=== PATIENT | female | born 1955 | race Caucasian/White ===

== ENCOUNTER 2016-07-21 15:23 | Emergency (ER) | payer OTHER ==
[~2016-07-21] VITALS: Ht 157.5 cm; Wt 60.5 kg
[~2016-07-21 15:23] MED LIST: HYDR-3498 PO; IBUP-1542 PO; TRAM50TA2 PO; TYL500 PO
[2016-07-21 15:26] VITALS: Ht 157.5 cm; Wt 60.5 kg
[2016-07-21] MEDS ORDERED: SOD CHLORIDE 0.9% 1,000 ML IV STA (16:16)
[2016-07-21] MEDS ORDERED: ONDANSETRON 4 MG INJ IV STA (16:16)
[2016-07-21] MEDS ORDERED: morphine 4 MG/ML VIAL IV STA (16:16)
--- NOTE | 2016-07-21 16:33 | ERD ---
ER Documentation Chief Complaint Date/Time DATE: 07/21/16 TIME: 16:26 Chief Complaint bilateral swollen ankles x 1 year HPI 61-year-old female presents the emergency department for complaints of bilateral ankle swelling with pain 1 year. Patient also notes right sided pain near her inguinal region, which has also occurred intermittently throughout the year. Patient states her groin pain is a 5 out of 10 sharp pain worse with coughing. Patient denies any nausea, vomiting, diarrhea, abdominal pain, upper respiratory shortness of breath, cough. Patient denies any medical history. Patient states she has attempted to treat the pain with Tylenol at home with only mild relief. She denies any injury and is able to ambulate without difficulty. ROS All systems reviewed and are negative except as per history of present illness. Medications Home Meds Active Scripts Ibuprofen* (Motrin*) 600 Mg Tab, 600 MG PO Q6, #30 TAB Prov:SANFORD ROJAS PA-C 07/21/16 Acetaminophen* (Tylenol*) 325 Mg Tablet, 2 TAB PO Q6 Y for PAIN AND OR ELEVATED TEMP, #20 TAB Prov:SANFORD ROJAS PA-C 07/21/16 Furosemide* (Lasix*) 20 Mg Tablet, 20 MG PO DAILY, #40 TAB Prov:SANFORD ROJAS PA-C 07/21/16 Tramadol HCl (Tramadol HCl) 50 Mg Tablet, 50 MG PO Q4 Y for PAIN, #20 TAB Prov:ELIZABETH FIELD MD 10/14/15 Ibuprofen* (Motrin*) 600 Mg Tab, 600 MG PO Q6, #20 TAB Prov:ELIZABETH FIELD MD 10/14/15 Hydrocodone Bit-Acetaminophen* ([place]*) 5-325 Mg Tab, 1 TAB PO DAILY Y for PAIN , #10 TAB 0 Refills Prov:RYDER MOHR PA-C 01/15/15 Reported Medications Acetaminophen* (Tylenol*) 500 Mg Tab, 500 MG PO Q4H Y for MILD PAIN LEVEL 1-3, TAB 06/09/14 Allergies Allergies: Coded Allergies: Penicillins (Verified Allergy, Unknown, 10/14/15) PMhx/Soc History of Surgery: Yes (back surgery) Anesthesia Reaction: No Hx Neurological Disorder: No Hx Respiratory Disorders: No Hx Cardiac Disorders: No Hx Psychiatric Problems: No Hx Miscellaneous Medical Probl: No Hx Alcohol Use: No Hx Substance Use: No Hx Tobacco Use: No Physical Exam Vitals Vital Signs Date Time Temp Pulse Resp B/P Pulse Ox O2 Delivery O2 Flow Rate FiO2 07/21/16 15:26 98.5 90 18 135/82 96 Physical Exam Const: Well-developed, well-nourished, no acute distress Head: Atraumatic Eyes: Normal Conjunctiva ENT: Normal External Ears, Nose and Mouth. Neck: Full range of motion..~ No meningismus. Resp: Clear to auscultation bilaterally Cardio: Regular rate and rhythm, no murmurs Abd: Tenderness to palpation near the right anterior inguinal region. No masses palpable at rest and when the patient coughs. No erythema or swelling. No induration or fluctuance. Abdomen Soft, diffuse tenderness to palpation, non distended, no peritoneal signs. Normal bowel sounds Skin: No petechiae or rashes Back: No midline or flank tenderness Ext: Full range of motion at hip joint. Patient able to bear weight and ambulate without difficulty. Bilateral non-erythematous, nonpitting edema overlying the ankle joints bilaterally. Skin is warm and well perfused.. Patient has full range of motion at ankle joint. Distal sensation intact. Patient able to ambulate without difficulty. No cyanosis Neur: Awake and alert Psych: Normal Mood and Affect Result Diagram: 07/21/16 1640 07/21/16 1640 Results 24 hrs Laboratory Tests Test 07/21/16 16:40 White Blood Count 7.710^3/ul Red Blood Count 4.2910^6/ul Hemoglobin 11.9g/dl Hematocrit 37.4% Mean Corpuscular Volume 87.2fl Mean Corpuscular Hemoglobin 27.7pg Mean Corpuscular Hemoglobin Concent 31.8g/dl Red Cell Distribution Width 13.0% Platelet Count 83891^3/UL Mean Platelet Volume 10.0fl Neutrophils % 53.4% Lymphocytes % 33.1% Monocytes % 8.2% Eosinophils % 4.7% Basophils % 0.5% Nucleated Red Blood Cells % 0.0/100WBC Neutrophils # 4.110^3/ul Lymphocytes # 2.610^3/ul Monocytes # 0.610^3/ul Eosinophils # 0.410^3/ul Basophils # 0.010^3/ul Nucleated Red Blood Cells # 0.010^3/ul Urine Color LT. YELLOW Urine Clarity CLEAR Urine pH 6.0 Urine Specific [place] <=1.005 Urine Ketones NEGATIVE Urine Nitrite NEGATIVE Urine Bilirubin NEGATIVE Urine Urobilinogen 0.2 E.U./dL Urine Leukocyte Esterase NEGATIVE Urine Microscopic RBC 0-2/HPF Urine Microscopic WBC NONE SEEN/HPF Urine Hemoglobin 1+ Urine Glucose NEGATIVE% Urine Total Protein NEGATIVE Sodium Level 140mmol/L Potassium Level 3.4mmol/L Chloride Level 100mmol/L Carbon Dioxide Level 30mmol/L Anion Gap 13 Blood Urea Nitrogen 13mg/dl Creatinine 0.63mg/dl Glucose Level 100mg/dl Calcium Level 9.5mg/dl Total Bilirubin 0.1mg/dl Direct Bilirubin 0.00mg/dl Indirect Bilirubin 0.1mg/dl Aspartate Amino Transf (AST/SGOT) 24IU/L Alanine Aminotransferase (ALT/SGPT) 35IU/L Alkaline Phosphatase 109IU/L B-Type Natriuretic Peptide 188PG/ML Total Protein 9.1g/dl Albumin 4.3g/dl Globulin 4.80g/dl Albumin/Globulin Ratio 0.89 Lipase 107U/L Current Medications Medications (Trade) Dose Ordered Sig/Domniick Route PRN Reason Start Time Stop Time Status Last Admin Dose Admin Sodium Chloride (NS) 1,000 ml @ 1,000 mls/hr Q1H STAT IV 07/21/16 16:16 07/21/16 17:15 DC 07/21/16 16:43 Morphine Sulfate (morphine) 4 mg ONCE STAT IV 07/21/16 16:16 07/21/16 16:18 DC 07/21/16 16:43 Ondansetron HCl (Zofran Inj) 4 mg ONCE STAT IV 07/21/16 16:16 07/21/16 16:18 DC 07/21/16 16:43 Procedures/MDM PROCEDURE: CT Abdomen and Pelvis without contrast. CLINICAL INDICATION: Groin and abdominal pain TECHNIQUE: CT of the abdomen and pelvis was performed on a multi-detector scanner without IV contrast. Coronal and sagittal images were reformatted from the axial data set. One or more of the following dose reduction techniques were used: automated exposure control, adjustment of the mA and/or kV according to patient size, use of iterative reconstruction technique. CTDI = 8.48 mGy. DLP = 423.77 mGy-cm. COMPARISON: CT chest, 06/09/2014 FINDINGS: CT abdomen: The lung bases are clear. The heart size is normal, without pericardial effusion. Liver, gallbladder, biliary tree, pancreas, spleen, adrenal glands and kidneys are unremarkable. No urolithiasis or obstructive uropathy is identified. The stomach is grossly unremarkable. The aorta is of normal caliber. Aortic vascular calcifications are present. There is no retroperitoneal lymphadenopathy. The raghav hepatis region is clear. CT pelvis: No bowel obstruction, free intraperitoneal air or abscess is identified. The appendix is well visualized and normal. There is no diverticulosis, diverticulitis or colitis. Urinary bladder, uterus and adnexa are unremarkable. No pelvic mass, free fluid or lymphadenopathy is seen. There is posterior surgical fusion at L3-L5. 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 IMPRESSION: 1. No urolithiasis or obstructive uropathy is identified. 2. 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 3. No lymphadenopathy or focal acute inflammatory process is identified. RPTAT: AA .Jefferson Champion MD, MD Date Time Electronically viewed and signed by .Jefferson Champion MD, MD on 07/21/2016 17: 50 .R/ CC: SANFORD ROJAS PA-C EKG: Rate/Rhythm: Normal Sinus Rhythm QRS, ST, T-waves: No changes consistent w/ acute ischemia Impression: No evidence of ischemia or arrhythmia 61-year-old female presents emergency department for complaints of bilateral ankle swelling and inguinal pain 1 year. Patient well-appearing upon arrival. Vital signs reviewed. Patient afebrile, non-tachycardic, not and normotensive upon arrival. Patient mild diffuse tenderness to palpation of her abdomen with marked tenderness to palpation noted along right inguinal area although no mass or hernia like structure palpable. Bilateral distal extremities with moderate nonpitting edema overlying the ankle joint. Patient denies any trauma and is able to ambulate without difficulty. CBC showed no evidence of systemic infection or severe anemia. CMP showed evidence of slightly decreased potassium at 3.4. Otherwise no electrolyte abnormalities, severe acidosis, alkalosis, renal failure, or liver disease. BNP elevated. Patient denies any history of congestive heart failure. I ordered a troponin, EKG and chest x-ray as this is a new onset lab finding to rule out acute coronary syndrome. Lipase showed no evidence of acute pancreatitis. UA showed 1+ hematuria but no evidence of acute infection . CT scan without evidence of urolithiasis, appendicitis, diverticulitis, lymphadenopathy, or pelvic free fluid. I suspect her groin pain is due to arthritis versus femoral hernia however there is no evidence of incarcerated or strangulated hernia or mass at this time. Ankle pain and swelling likely due to venous stasis. Differential diagnosis includes but not limited to congestive heart failure, arthritis or venous insufficiency. Low suspicion for acute cellulitis, DVT, fracture or dislocation. I recommended walking daily and elevating legs when at home. I will also begin the patient on a low-dose of Lasix to alleviate the swelling and pain. Departure Diagnosis: Primary Impression: Swelling of both lower extremities Additional Impression: Inguinal pain Laterality: right Qualified Code: R10.31 - Inguinal pain, right SANFORD ROJAS PA-C July 21, 2016 16:33
[2016-07-21 16:46] LABS: ADD SCAN DIFF NO
[2016-07-21 16:50] LABS: BASOPHILS % 0.5 % (0.0-2.0); EOSINOPHILS # 0.4 10^3/ul (0.0-0.5); EOSINOPHILS % 4.7 % (0.0-7.0); HEMATOCRIT 37.4 % (37.0-47.0); HEMOGLOBIN 11.9 g/dl (12.0-16.0); LYMPHOCYTES # 2.6 10^3/ul (0.8-2.9); LYMPHOCYTES % 33.1 % (15.0-51.0); MEAN CORPUSCULAR HEMOGLOBIN 27.7 pg (29.0-33.0); MEAN CORPUSCULAR HGB CONC 31.8 g/dl (32.0-37.0); MEAN CORPUSCULAR VOLUME 87.2 fl (82.0-101.0); MONOCYTE # 0.6 10^3/ul (0.3-0.9); MONOCYTES % 8.2 % (0.0-11.0); NEUTROPHIL # 4.1 10^3/ul (1.6-7.5); NEUTROPHILS % 53.4 % (39.0-77.0); PLATELET COUNT 318 10^3/UL (140-415); RED BLOOD COUNT 4.29 10^6/ul (4.20-5.40); WHITE BLOOD COUNT 7.7 10^3/ul (4.8-10.8)
[2016-07-21 16:52] LABS: ADD UMIC YES; URINE BILIRUBIN (Dip) NEGATIVE (NEGATIVE); URINE BLOOD (Dip) 1+ (NEGATIVE); URINE GLUCOSE (Dip) NEGATIVE (NEGATIVE); URINE KETONES (Dip) NEGATIVE (NEGATIVE); URINE LEUKOCYTE ESTERASE (Dip) NEGATIVE (NEGATIVE); URINE NITRITE (Dip) NEGATIVE (NEGATIVE); URINE TOTAL PROTEIN (Dip) NEGATIVE (NEGATIVE); URINE UROBILINOGEN (Dip) 0.2 E.U./dL (0.1-1.0)
[2016-07-21 17:07] LABS: ALBUMIN 4.3 g/dl (3.3-4.9); ALBUMIN/GLOBULIN RATIO 0.89; BILIRUBIN,INDIRECT 0.1 mg/dl (0-1.1); BILIRUBIN,TOTAL 0.1 mg/dl (0.2-1.3); CALCIUM 9.5 mg/dl (8.4-10.2); CREATININE 0.63 mg/dl (0.44-1.00); POTASSIUM 3.4 mmol/L (3.5-5.1); TOTAL PROTEIN 9.1 g/dl (6.1-8.1)
[2016-07-21 17:10] LABS: URINE COLOR LT. YELLOW (YELLOW); URINE RBCS 0-2 /HPF (0)
--- NOTE | 2016-07-21 17:50 | RADRPT ---
PROCEDURE: CT Abdomen and Pelvis without contrast. CLINICAL INDICATION: Groin and abdominal pain TECHNIQUE: CT of the abdomen and pelvis was performed on a multi-detector scanner without IV contr ast. Coronal and sagittal images were reformatted from the axial data set. One or more of the foll owing dose reduction techniques were used: automated exposure control, adjustment of the mA and/or kV according to patient size, use of iterative reconstruction technique. CTDI = 8.48 mGy. DLP = 423 .77 mGy-cm. COMPARISON: CT chest, 06/09/2014 FINDINGS: CT abdomen: The lung bases are clear. The heart size is normal, without pericardial effusion. Liver, gallbladd er, biliary tree, pancreas, spleen, adrenal glands and kidneys are unremarkable. No urolithiasis or obstructive uropathy is identified. The stomach is grossly unremarkable. The aorta is of normal caliber. Aortic vascular calcifications are present. There is no retroperit plasencia lymphadenopathy. The raghav hepatis region is clear. CT pelvis: No bowel obstruction, free intraperitoneal air or abscess is identified. The appendix is well visua lized and normal. There is no diverticulosis, diverticulitis or colitis. Urinary bladder, uterus a nd adnexa are unremarkable. No pelvic mass, free fluid or lymphadenopathy is seen. There is posterior surgical fusion at L3-L5. 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 IMPRESSION: 1. No urolithiasis or obstructive uropathy is identified. 2. 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 3. No lymphadenopathy or focal acute inflammatory process is identified. RPTAT: AA .Jefferson Champion MD, Date Time Electronically viewed and signed by .Jefferson Champion MD, MD on 07/21/2016 17:50 .R/
[2016-07-21] MEDS ORDERED: FURO-110 PO (18:10)
[2016-07-21] MEDS ORDERED: IBUP-1542 PO (18:13)
[2016-07-21] MEDS ORDERED: ACET325T33 PO (18:13)
--- NOTE | 2016-07-21 19:01 | RADRPT ---
PROCEDURE: XR Chest. CLINICAL INDICATION: Chest pain. TECHNIQUE: Single AP portable chest COMPARISON: 06/09/2014 Chest x-ray FINDINGS: The cardiomediastinal silhouette is within normal limits of size. Note is made of smooth subpleural density measuring 4.4 x 1 cm in craniocaudal and transverse dimensions respectively stable compared to prior examination. Comparison with CT chest of 06/09/2014 demonstrates expansile rib lesion in t his region with an differential diagnosis provided at that time. Atherosclerotic calcification of t he aorta. The lungs are clear without pleural effusion or focal consolidation. No pneumothorax. The osseous structures and soft tissues are unremarkable. IMPRESSION: 1. No evidence for active cardiopulmonary disease. 2. Stable appearance of expansile rib lesion. Follow-up with CT or bone scan may be considered as clinically warranted. RPTAT:AAJJ Physician Felix Date Time Electronically viewed and signed by Physician Felix on 07/21/2016 19:00 PRANAY/
[2016-07-21 21:23] VITALS: BP 130/64; PULSE 67; RESP 16; TEMP 98.1
--- NOTE | 2016-07-21 21:35 | QN ---
Documentation Comment Patient signed out to me by JAY Dave pending chest x-ray and troponin results. PROCEDURE: XR Chest. CLINICAL INDICATION: Chest pain. TECHNIQUE: Single AP portable chest COMPARISON: 06/09/2014 Chest x-ray FINDINGS: The cardiomediastinal silhouette is within normal limits of size. Note is made of smooth subpleural density measuring 4.4 x 1 cm in craniocaudal and transverse dimensions respectively stable compared to prior examination. Comparison with CT chest of 06/09/2014 demonstrates expansile rib lesion in this region with an differential diagnosis provided at that time. Atherosclerotic calcification of the aorta. The lungs are clear without pleural effusion or focal consolidation. No pneumothorax. The osseous structures and soft tissues are unremarkable. IMPRESSION: 1. No evidence for active cardiopulmonary disease. 2. Stable appearance of expansile rib lesion. Follow-up with CT or bone scan may be considered as clinically warranted. RPTAT:AAJJ Physician Felix Date Time Electronically viewed and signed by Physician Felix on 07/21/2016 19:00 PRANAY/ CC: SANFORD ROJAS PA-C Troponin negative. Patient discharged per instruction from JAY Dave. Patient condition at time of discharge: Stable. FREDA DONOVAN NP July 21, 2016 21:35
== END 2016-07-21 21:26 | disposition home or self-care (01) ==
LOC: FTE 15:23
DX: M79.89 Other specified soft tissue disorders (principal); R10.31 Right lower quadrant pain
CPT/HCPCS: 36415; 71010; 74176; 80053; 81001; 83690; 83880; 84484; 85025; 93005; 96374; 96375; J2270; J2405; J7030; Z7502

== ENCOUNTER 2017-01-21 16:14 | Inpatient (IN) | payer OTHER ==
[~2017-01-21] VITALS: Wt 61.7 kg
[~2017-01-21 16:14] MED LIST changes: +ACET325T33 PO; +FURO-110 PO
[2017-01-21] MEDS ORDERED: morphine 4 MG/ML VIAL IV STA (19:39)
[2017-01-21] MEDS ORDERED: SOD CHLORIDE 0.9% 500 ML IV STA (19:39)
[2017-01-21] MEDS ORDERED: LIDOCAINE/MYLANTA 40 ML BTL PO STA (19:39)
[2017-01-21] MEDS ORDERED: ONDANSETRON 4 MG INJ IV STA (19:39)
[2017-01-21 19:45] LABS: URINE BLOOD (Dip) POC 2+ (NEGATIVE)
[2017-01-21] MEDS ORDERED: ASPIRIN 81 MG TAB PO ONE (20:00)
[2017-01-21 20:08] LABS: BASOPHIL # 0.1 10^3/ul (0.0-0.1); BASOPHILS % 0.5 % (0.0-2.0); EOSINOPHILS # 0.4 10^3/ul (0.0-0.5); EOSINOPHILS % 4.4 % (0.0-7.0); HEMATOCRIT 36.7 % (37.0-47.0); HEMOGLOBIN 11.9 g/dl (12.0-16.0); LYMPHOCYTES # 3.2 10^3/ul (0.8-2.9); LYMPHOCYTES % 32.5 % (15.0-51.0); MEAN CORPUSCULAR HEMOGLOBIN 28.7 pg (29.0-33.0); MEAN CORPUSCULAR HGB CONC 32.4 g/dl (32.0-37.0); MEAN CORPUSCULAR VOLUME 88.6 fl (82.0-101.0); MEAN PLATELET VOLUME 10.1 fl (7.4-10.4); MONOCYTE # 0.8 10^3/ul (0.3-0.9); MONOCYTES % 7.7 % (0.0-11.0); NEUTROPHIL # 5.3 10^3/ul (1.6-7.5); NEUTROPHILS % 54.7 % (39.0-77.0); PLATELET COUNT 350 10^3/UL (140-415); RED BLOOD COUNT 4.14 10^6/ul (4.20-5.40); RED CELL DISTRIBUTION WIDTH 13.1 % (11.5-14.5); WHITE BLOOD COUNT 9.7 10^3/ul (4.8-10.8)
[2017-01-21 20:32] LABS: ALANINE AMINOTRANSFERASE 28 IU/L (13-69); ALBUMIN 4.1 g/dl (3.3-4.9); ALBUMIN/GLOBULIN RATIO 0.91; ALKALINE PHOSPHATASE 112 IU/L (42-121); ANION GAP 15 (8-16); ASPARTATE AMINO TRANSFERASE 19 IU/L (15-46); BILIRUBIN,INDIRECT 0.2 mg/dl (0-1.1); BILIRUBIN,TOTAL 0.2 mg/dl (0.2-1.3); BLOOD UREA NITROGEN 16 mg/dl (7-20); CALCIUM 9.7 mg/dl (8.4-10.2); CARBON DIOXIDE 32 mmol/L (21-31); CHLORIDE 100 mmol/L (97-110); CREATININE 0.78 mg/dl (0.44-1.00); GLUCOSE 94 mg/dl (70-220); SODIUM 143 mmol/L (135-144); TOTAL PROTEIN 8.6 g/dl (6.1-8.1)
--- NOTE | 2017-01-21 20:32 | RADRPT ---
PROCEDURE: XR Chest. CLINICAL INDICATION: Chest pain. Abdominal pain TECHNIQUE: Portable AP upright view of the chest was obtained. COMPARISON: 06/09/2014 FINDINGS: The cardiomediastinal silhouette is within normal limits. The lungs are clear. There is no evidenc e for pleural effusion, pneumothorax or pulmonary vascular congestion. Expansion of a left lower la teral rib is again noted probably fibrous dysplasia or benign fibro osseous lesion. There is no evid ence of acute osseous abnormality. Calcification is seen within the aorta. No free air is demonstrat ed below the diaphragm. RPTAT:HJJR IMPRESSION: 1. No evidence for acute intrathoracic pathology. 2. Incidental benign stable expansion of the left lower lateral rib. 3. Aortic atherosclerosis is present. Physician Xena Date Time Electronically viewed and signed by Physician Xena on 01/21/2017 20:31 JR/
[2017-01-21 20:47] LABS: TROPONIN-I < 0.012 ng/ml (0.00-0.12)
[2017-01-21 20:57] LABS: ADD UMIC YES; UR ASCORBIC ACID NEGATIVE (NEGATIVE); UR BILIRUBIN (Dip) NEGATIVE (NEGATIVE); UR BLOOD (Dip) 2+ mg/dL (NEGATIVE); UR CLARITY CLEAR (CLEAR); UR COLOR YELLOW (YELLOW); UR GLUCOSE (Dip) NEGATIVE (NEGATIVE); UR KETONES (Dip) NEGATIVE (NEGATIVE); UR LEUKOCYTE ESTERASE (Dip) 1+ Leu/ul (NEGATIVE); UR NITRITE (Dip) NEGATIVE (NEGATIVE); UR RBC 5 /HPF (0-5); UR SPECIFIC GRAVITY (Dip) 1.012 (1.003-1.030); UR TOTAL PROTEIN (Dip) NEGATIVE (NEGATIVE); UR UROBILINOGEN (Dip) NEGATIVE (NEGATIVE)
[2017-01-22] VITALS (10 sets, daily range): BP systolic 116–140; BP diastolic 57–69; PULSE 66–78; RESP 16–20; TEMP 97.8
[2017-01-22] MEDS ORDERED: morphine 4 MG/ML VIAL IV ONE (00:36)
--- NOTE | 2017-01-22 01:41 | ERD ---
ER Documentation Chief Complaint Chief Complaint BACK PAIN RADIATING TO CHEST, RIGHT LOWER BACK PAIN RADIATING TO RIGHT LEG HPI 61-year-old female presents with general chest pain rating to her back but is her lower back for the last couple days per. Also has the pain in her legs. She has never had a cardiac workup of any type. Occasionally has nausea. Denies vomiting currently. Has some shortness of breath. ROS All systems reviewed and are negative except as per history of present illness. Medications Home Meds Active Scripts Ibuprofen* (Motrin*) 600 Mg Tab, 600 MG PO Q6, #30 TAB Prov:SANFORD ROJAS PA-C 07/21/16 Acetaminophen* (Tylenol*) 325 Mg Tablet, 2 TAB PO Q6 Y for PAIN AND OR ELEVATED TEMP, #20 TAB Prov:SANFORD ROJAS PA-C 07/21/16 Furosemide* (Lasix*) 20 Mg Tablet, 20 MG PO DAILY, #40 TAB Prov:SANFORD ROJAS PA-C 07/21/16 Tramadol HCl (Tramadol HCl) 50 Mg Tablet, 50 MG PO Q4 Y for PAIN, #20 TAB Prov:ELIZABETH FIELD MD 10/14/15 Ibuprofen* (Motrin*) 600 Mg Tab, 600 MG PO Q6, #20 TAB Prov:ELIZABETH FIELD MD 10/14/15 Hydrocodone Bit-Acetaminophen* ([place]*) 5-325 Mg Tab, 1 TAB PO DAILY Y for PAIN , #10 TAB 0 Refills Prov:RYDER MOHRC 01/15/15 Reported Medications Acetaminophen* (Tylenol*) 500 Mg Tab, 500 MG PO Q4H Y for MILD PAIN LEVEL 1-3, TAB 06/09/14 Allergies Allergies: Coded Allergies: Penicillins (Verified Allergy, Unknown, 10/14/15) PMhx/Soc History of Surgery: Yes (back surgery) Anesthesia Reaction: No Hx Neurological Disorder: No Hx Respiratory Disorders: No Hx Cardiac Disorders: No Hx Psychiatric Problems: No Hx Miscellaneous Medical Probl: No Hx Alcohol Use: No Hx Substance Use: No Hx Tobacco Use: No Smoking Status: Never smoker Physical Exam Vitals Vital Signs Date Time Temp Pulse Resp B/P Pulse Ox O2 Delivery O2 Flow Rate FiO2 01/21/17 23:53 61 16 147/63 96 Room Air 01/21/17 16:19 97.6 89 17 151/76 97 Physical Exam Const: [] Mild to moderate distress, appears uncomfortable Head: Atraumatic Eyes: Normal Conjunctiva ENT: Normal External Ears, Nose and Mouth. Neck: Full range of motion..~ No meningismus. Resp: Clear to auscultation bilaterally Cardio: Regular rate and rhythm, no murmurs Abd: Soft, non tender, non distended. Normal bowel sounds Skin: No petechiae or rashes Back: No midline or flank tenderness Ext: No cyanosis, or edema Neur: Awake and alert 3, no focal deficits Psych: Normal Mood and Affect Result Diagram: 01/21/17 1950 01/21/171949 Results 24 hrs Laboratory Tests Test 01/21/17 19:35 01/21/17 19:43 01/21/17 19:50 Urine Color YELLOW Urine Clarity CLEAR Urine pH 7.0 Urine Specific [place] 1.012 Urine Ketones NEGATIVEmg/dL Urine Nitrite NEGATIVEmg/dL Urine Bilirubin NEGATIVEmg/dL Urine Urobilinogen NEGATIVEmg/dL Urine Leukocyte Esterase 1+[place]/ul Urine Microscopic RBC 5/HPF Urine Microscopic WBC 11/HPF Urine Hemoglobin 2+mg/dL Urine Glucose NEGATIVEmg/dL Urine Total Protein NEGATIVEmg/dl Bedside Urine pH (LAB) 7.0 Bedside Urine Protein (LAB) Negative Bedside Urine Glucose (UA) Negative Bedside Urine Ketones (LAB) Negative Bedside Urine Blood 2+ Bedside Urine Nitrite (LAB) Negative Bedside Urine Leukocyte Esterase (L 1+ White Blood Count 9.710^3/ul Red Blood Count 4.1410^6/ul Hemoglobin 11.9g/dl Hematocrit 36.7% Mean Corpuscular Volume 88.6fl Mean Corpuscular Hemoglobin 28.7pg Mean Corpuscular Hemoglobin Concent 32.4g/dl Red Cell Distribution Width 13.1% Platelet Count 53681^3/UL Mean Platelet Volume 10.1fl Neutrophils % 54.7% Lymphocytes % 32.5% Monocytes % 7.7% Eosinophils % 4.4% Basophils % 0.5% Nucleated Red Blood Cells % 0.0/100WBC Neutrophils # 5.310^3/ul Lymphocytes # 3.210^3/ul Monocytes # 0.810^3/ul Eosinophils # 0.410^3/ul Basophils # 0.110^3/ul Nucleated Red Blood Cells # 0.010^3/ul Sodium Level 143mmol/L Potassium Level 4.0mmol/L Chloride Level 100mmol/L Carbon Dioxide Level 32mmol/L Anion Gap 15 Blood Urea Nitrogen 16mg/dl Creatinine 0.78mg/dl Glucose Level 94mg/dl Calcium Level 9.7mg/dl Total Bilirubin 0.2mg/dl Direct Bilirubin 0.00mg/dl Indirect Bilirubin 0.2mg/dl Aspartate Amino Transf (AST/SGOT) 19IU/L Alanine Aminotransferase (ALT/SGPT) 28IU/L Alkaline Phosphatase 112IU/L Troponin I < 0.012ng/ml Total Protein 8.6g/dl Albumin 4.1g/dl Globulin 4.50g/dl Albumin/Globulin Ratio 0.91 Lipase 121U/L Current Medications Medications (Trade) Dose Ordered Sig/Dominick Route PRN Reason Start Time Stop Time Status Last Admin Dose Admin Sodium Chloride (NS) 500 ml @ 500 mls/hr Q1H STAT IV 01/21/17 19:39 01/21/17 20:38 DC 01/21/17 19:50 Morphine Sulfate (morphine) 4 mg ONCE STAT IV 01/21/17 19:39 01/21/17 19:41 DC 01/21/17 19:51 Ondansetron HCl (Zofran Inj) 4 mg ONCE STAT IV 01/21/17 19:39 01/21/17 19:41 DC 01/21/17 19:51 Miscellaneous Medication (Gi Cocktail (2)) 40 ml ONCE STAT PO 01/21/17 19:39 01/21/17 19:41 DC 01/21/17 19:50 Aspirin (Aspirin) 324 mg ONCE ONCE PO 01/21/17 20:00 01/21/17 20:01 DC 01/21/17 19:51 Morphine Sulfate 4 mg 4 mg ONCE ONCE IV 01/22/17 00:36 01/22/17 00:37 DC 01/22/17 00:52 Ceftriaxone Sodium (Rocephin) 50 ml @ 100 mls/hr ONCE ONCE IVPB 01/22/17 02:00 01/22/17 02:29 Procedures/MDM Chest pain with likely mild UTI and patient with ongoing chest pain after aspirin, morphine, GI cocktail. No signs of ischemia earlier but states that her chest pain got worse before she came in. Given a gram of Rocephin for UTI and urine culture was obtained. Will be admitted for trending of troponins rule out for acute coronary syndrome. No signs of infection currently. Increase CO2 indicates possible traction alkalosis secondary to dehydration. Dr. Victoria will be admitting her telemetry floor. EKG interpretation: Normal sinus rhythm rate of 85, normal axis, normal intervals, no ST or T-wave changes concerning for acute ischemia. supervisor anodizing interpretation: Normal sinus rhythm without arrhythmia Chest x-ray interpretation: I see no acute process. I see no pulmonary edema, no infiltrate, no pneumothorax, no fractures. Departure Diagnosis: Primary Impression: Chest pain Additional Impressions: UTI (urinary tract infection) Normocytic anemia Condition: Stable JULIETTE CARBONE DO Jan 22, 2017 01:41
[2017-01-22] MEDS ORDERED: ONDANSETRON 4 MG INJ IV PRN ×2 (02:00→05:00)
[2017-01-22] MEDS ORDERED: ACETAMINOPHEN 325 MG TAB PO PRN ×2 (02:00→05:00)
[2017-01-22] MEDS ORDERED: CEFTRIAXONE 1 GM/50 ML (PMX) 50 ML IVPB ONE (02:00)
[2017-01-22 02:39] LABS: CREATINE KINASE 39 IU/L (23-200)
[2017-01-22 02:51] LABS: CK-MB < 0.22 ng/ml (0.0-2.4); TROPONIN-I < 0.012 ng/ml (0.00-0.12)
[2017-01-22] MEDS ORDERED: NITROGLYCERIN (SL) 0.4 MG TAB SL PRN (05:00)
[2017-01-22] MEDS ORDERED: ALBUTEROL/IPRATROPIUM (NEB) 3 ML AMP HHN PRN (05:00)
[2017-01-22] MEDS ORDERED: morphine 2 MG INJ IV PRN (05:00)
[2017-01-22] MEDS ORDERED: NACL 0.9% 3 ML SYG IV SCH (05:00)
[2017-01-22] MEDS: SOD CHLORIDE 0.9% 1,000 ML IV SCH ×2 (05:09→14:38)
[2017-01-22] MEDS: IBUPROFEN 600 MG TAB PO SCH ×3 (05:16→17:29)
[2017-01-22 07:33] LABS: BASOPHILS % 0.5 % (0.0-2.0); EOSINOPHILS # 0.6 10^3/ul (0.0-0.5); EOSINOPHILS % 6.3 % (0.0-7.0); HEMATOCRIT 35.3 % (37.0-47.0); HEMOGLOBIN 11.3 g/dl (12.0-16.0); LYMPHOCYTES # 1.8 10^3/ul (0.8-2.9); MEAN CORPUSCULAR HEMOGLOBIN 28.5 pg (29.0-33.0); MEAN CORPUSCULAR VOLUME 89.1 fl (82.0-101.0); MEAN PLATELET VOLUME 10.1 fl (7.4-10.4); MONOCYTE # 0.8 10^3/ul (0.3-0.9); MONOCYTES % 9.2 % (0.0-11.0); NEUTROPHIL # 5.5 10^3/ul (1.6-7.5); NEUTROPHILS % 62.9 % (39.0-77.0); PLATELET COUNT 308 10^3/UL (140-415); RED BLOOD COUNT 3.96 10^6/ul (4.20-5.40); RED CELL DISTRIBUTION WIDTH 13.2 % (11.5-14.5); WHITE BLOOD COUNT 8.7 10^3/ul (4.8-10.8)
[2017-01-22 07:51] LABS: ALBUMIN 3.6 g/dl (3.3-4.9); ALBUMIN/GLOBULIN RATIO 1.05; BILIRUBIN,INDIRECT 0.1 mg/dl (0-1.1); BILIRUBIN,TOTAL 0.1 mg/dl (0.2-1.3); CALCIUM 8.7 mg/dl (8.4-10.2); CREATININE 0.87 mg/dl (0.44-1.00); MAGNESIUM 2.3 mg/dl (1.7-2.5); POTASSIUM 4.2 mmol/L (3.5-5.1)
[2017-01-22 07:55] LABS: CREATINE KINASE 42 IU/L (23-200)
[2017-01-22 08:04] LABS: CK-MB < 0.22 ng/ml (0.0-2.4); TROPONIN-I < 0.012 ng/ml (0.00-0.12)
[2017-01-22 08:55] LABS: THYROID STIMULATING HORMONE 1.47 MIU/L (0.465-4.680)
[2017-01-22] MEDS ORDERED: ENOXAPARIN 40 MG/0.4 ML SYG SC SCH (09:00)
[2017-01-22] MEDS ORDERED: CIPROFLOXACIN 400MG/D5W 200 ML IVPB SCH (09:00)
[2017-01-22] MEDS ORDERED: ASPIRIN 81 MG TAB PO SCH (09:00)
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
--- NOTE | 2017-01-22 15:34 | PN ---
Date/Time of Note Date/Time of Note DATE: 01/22/17 TIME: 15:32 Assessment/Plan VTE Prophylaxis VTE Prophylaxis Intervention: LMWH Lines/Catheters IV Catheter Type (from [facility]): Peripheral IV Assessment/Plan Chief Complaint/Hosp Course S: Back right lower extremity radiculopathy. No incontinence no fever no weight loss. Positive recent injury. O; vss Physical exam No pallor adenopathy Regular Clear Bs+ positive nontender nondistended no RR G No edema. Reflexes diminished but symmetrical. No Babinski's. Straight leg raising test above 45 bilaterally A/P 1. Lumbar disc dz/acute back strain. Stable cont supportive care. LS spine xr & CT chest/ribs pending. May follow-up with neurosurgery as outpatient. Problems: Exam/Review of Systems Vital Signs Vitals Vital Signs Date Time Temp Pulse Resp B/P Pulse Ox O2 Delivery O2 Flow Rate FiO2 01/22/17 15:21 98.0 70 16 116/57 96 01/22/17 01:41 Room Air Intake and Output 01/21/17 01/21/17 01/22/17 14:59 22:59 06:59 Intake Total 500 ml Balance 500 ml Results Result Diagram: 01/22/17 0638 01/22/17 0638 Results 24 hrs Laboratory Tests Test 01/21/17 19:35 01/21/17 19:43 01/21/17 19:50 01/22/17 02:00 Urine Color YELLOW Urine Clarity CLEAR Urine pH 7.0 Urine Specific [place] 1.012 Urine Ketones NEGATIVE Urine Nitrite NEGATIVE Urine Bilirubin NEGATIVE Urine Urobilinogen NEGATIVE Urine Leukocyte Esterase 1+ H Urine Microscopic RBC 5 Urine Microscopic WBC 11 H Urine Hemoglobin 2+ H Urine Glucose NEGATIVE Urine Total Protein NEGATIVE Bedside Urine pH (LAB) 7.0 Bedside Urine Protein (LAB) Negative Bedside Urine Glucose (UA) Negative Bedside Urine Ketones (LAB) Negative Bedside Urine Blood 2+ H Bedside Urine Nitrite (LAB) Negative Bedside Urine Leukocyte Esterase (L 1+ H White Blood Count 9.7 # Red Blood Count 4.14 L Hemoglobin 11.9 L Hematocrit 36.7 L Mean Corpuscular Volume 88.6 Mean Corpuscular Hemoglobin 28.7 L Mean Corpuscular Hemoglobin Concent 32.4 Red Cell Distribution Width 13.1 Platelet Count 350 Mean Platelet Volume 10.1 Neutrophils % 54.7 Lymphocytes % 32.5 Monocytes % 7.7 Eosinophils % 4.4 Basophils % 0.5 Nucleated Red Blood Cells % 0.0 Neutrophils # 5.3 Lymphocytes # 3.2 H Monocytes # 0.8 Eosinophils # 0.4 Basophils # 0.1 Nucleated Red Blood Cells # 0.0 Sodium Level 143 Potassium Level 4.0 Chloride Level 100 Carbon Dioxide Level 32 H Anion Gap 15 Blood Urea Nitrogen 16 Creatinine 0.78 Glucose Level 94 Calcium Level 9.7 Total Bilirubin 0.2 Direct Bilirubin 0.00 Indirect Bilirubin 0.2 Aspartate Amino Transf (AST/SGOT) 19 Alanine Aminotransferase (ALT/SGPT) 28 Alkaline Phosphatase 112 Troponin I < 0.012 < 0.012 Total Protein 8.6 H Albumin 4.1 Globulin 4.50 H Albumin/Globulin Ratio 0.91 Lipase 121 Creatine Kinase 39 Creatine Kinase Index 0.6 Creatinine Kinase MB (Mass) < 0.22 Test 01/22/17 06:38 White Blood Count 8.7 Red Blood Count 3.96 L Hemoglobin 11.3 L Hematocrit 35.3 L Mean Corpuscular Volume 89.1 Mean Corpuscular Hemoglobin 28.5 L Mean Corpuscular Hemoglobin Concent 32.0 Red Cell Distribution Width 13.2 Platelet Count 308 Mean Platelet Volume 10.1 Neutrophils % 62.9 Lymphocytes % 21.0 Monocytes % 9.2 Eosinophils % 6.3 Basophils % 0.5 Nucleated Red Blood Cells % 0.0 Neutrophils # 5.5 Lymphocytes # 1.8 Monocytes # 0.8 Eosinophils # 0.6 H Basophils # 0.0 Nucleated Red Blood Cells # 0.0 Sodium Level 143 Potassium Level 4.2 Chloride Level 103 Carbon Dioxide Level 30 Anion Gap 14 Blood Urea Nitrogen 17 Creatinine 0.87 Glucose Level 103 Hemoglobin A1c 5.7 Calcium Level 8.7 Magnesium Level 2.3 Total Bilirubin 0.1 L Direct Bilirubin 0.00 Indirect Bilirubin 0.1 Aspartate Amino Transf (AST/SGOT) 15 Alanine Aminotransferase (ALT/SGPT) 30 Alkaline Phosphatase 86 Creatine Kinase 42 Creatine Kinase Index 0.5 Creatinine Kinase MB (Mass) < 0.22 Troponin I < 0.012 Total Protein 7.0 # Albumin 3.6 Globulin 3.40 H Albumin/Globulin Ratio 1.05 Triglycerides Level 74 Cholesterol Level 176 LDL Cholesterol, Calculated 117 HDL Cholesterol 44 Cholesterol/HDL Ratio 4.0 Thyroid Stimulating Hormone (TSH) 1.470 Medications Medications Current Medications Sodium Chloride (NS) 1,000 ml @ 100 mls/hr Q10H IV Last administered on 14:38; Admin Dose 100 MLS/HR; Start 01/22/17 at 04:34; Stop 01/22/17 at 23:00 Ondansetron HCl (Zofran Inj) 4 mg Q6H PRN IV NAUSEA AND/OR VOMITING; Start at 05:00 Aspirin (Aspirin) 81 mg DAILY PO Last administered on 01/22/17 08:13; Admin Dose 81 MG; Start 01/22/17 at 09:00 Nitroglycerin (Nitroglycerin (Sl Tab) 0.4 Mg) 1 tab Q5M PRN SL CHEST PAIN; Start 01/22/17 at 05:00 Acetaminophen (Tylenol Tab) 650 mg Q6H PRN PO PAIN LEVEL 1-3 OR FEVER; Start 01/22/17 at 05:00 Morphine Sulfate (morphine) 2 mg Q4H PRN IV PAIN LEVEL 7-10 Last administered on 01/22/17 08:19; Admin Dose 2 MG; Start 01/22/17 at 05:00 Enoxaparin Sodium (Lovenox) 40 mg DAILY SC Last administered on 01/22/17 08: 13; Admin Dose 40 MG; Start 01/22/17 at 09:00 Ibuprofen 600 mg 600 mg Q6 PO Last administered on 01/22/17 12:10; Admin Dose 600 MG; Start 01/22/17 at 06:00 Ciprofloxacin/ Dextrose (Cipro Ivpb) 200 ml @ 200 mls/hr Q12 IVPB Last administered on 01/22/17 08:14; Admin Dose 200 MLS/HR; Start 01/22/17 at 09: 00 AUSTEN FINK MD Jan 22, 2017 15:34
--- NOTE | 2017-01-22 15:38 | PDOCDIS ---
Discharge Instructions DIAGNOSIS Discharge Diagnosis back pain CONDITION Patient Condition: Stable HOME CARE INSTRUCTIONS: Diet Instructions: Regular ACTIVITY: Activity Restrictions: Slowly Increase Activity Do not Drive FOLLOW UP/APPOINTMENTS Follow-up Plan PCP 1wk Neurosurgery, or Dr Poppy Farias 2wAUSTEN Menard MD Jan 22, 2017 15:38
[2017-01-22] MEDS ORDERED: Methylprednisolone Dose Pack PO (15:40)
[2017-01-22] MEDS ORDERED: DOCU-216 PO (15:40)
[2017-01-22] MEDS ORDERED: METHYLPREDNISOLONE 4 MG TAB PO SCH (16:00)
[2017-01-22] MEDS ORDERED: METHYLPREDNISOLONE (MEDROL) DOSE PACK PO SCH (16:00)
--- NOTE | 2017-01-22 17:09 | RADRPT ---
PROCEDURE: Lumbar Spine. CLINICAL INDICATION: Back pain, history of surgery. TECHNIQUE: Three views of the lumbar spine. COMPARISON: None available FINDINGS: The patient is status post multilevel discectomy and posterior fusion from L3-L5. The lumbar lordosi s is preserved without spondylolisthesis. The vertebral body heights are maintained. No acute fract ure or subluxation is seen. There is minimal endplate osteophytosis at L1-L2. IMPRESSION: 1. No acute fracture or subluxation. 2. Status post multilevel discectomy and posterior fusion from L3-L5. RPTAT: HTAR .Thomas Ellsworth MD, Date Time Electronically viewed and signed by .Thomas Ellsworth MD, on 01/22/2017 17:09 .R/
[2017-01-22] MEDS ORDERED: SOD CHLORIDE 0.9% 100 ML ONE (17:44)
[2017-01-22] MEDS ORDERED: IOHEXOL 300MG/ML 150 ML BTL ONE (17:44)
[2017-01-22] MEDS ORDERED: DOCUSATE SODIUM 100 MG CAP PO SCH (21:00)
--- NOTE | 2017-01-22 23:51 | RADRPT ---
PROCEDURE: IV contrast enhanced CT examination of the chest. CLINICAL INDICATION: Rib lesion. TECHNIQUE: IV contrast enhanced CT angiography of the chest, with axial, sagittal and coronal refo rmatted images. Automated dose exposure controls employed. The total exam CTDI equals 8.13 mGy and the total exam DLP equals 338.62 mGy-cm. 100 cc Isovue 300 nonionic IV contrast were employed. COMPARISON: Plain film chest dated 01/21/2017. CT examination the chest dated 06/09/2014. FINDINGS: Study is limited secondary to prominent systemic arterial phase and pulmonary venous phase. Otherwi se, no large central or proximal peripheral pulmonary emboli. Lungs are clear. Calcified lymph nodes in the right hilum and mediastinum compatible chronic granul omatous disease. Otherwise, there is no hilar or mediastinal adenopathy. The pleura is unremarkable . 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 This previously measured up to about 19 mm in the transverse dimension and now measures up to about 22 mm in the transverse dime nsion. Differences in measurement may be secondary to differences in CT technique. There is no signi ficant interval change in the craniocaudad measurement of this lesion, again measuring about 26 mm. There is no evident cortical breakthrough or soft tissue mass. 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 A nuclear medicine bone scan may be of further use if there is concern for ad ditional lesions. 58 x 16 mm region of early enhancement in the posterior right hepatic lobe may represent an atypical hemangioma versus arterial venous malformation. An MRI examination may be of further use if clinica lly required. A similar 10 mm lesion may be located in the subserosal anterior right hepatic lobe. T hese findings were not apparent on prior noncontrast examination of the chest dated 06/09/2014. IMPRESSION: 1. Possible slight increased diameter region of fibrous dysplasia in the mid axillary left 9th rib, although differences in measurements may be secondary to differences in CT technique. 2. No evident interval cortical destruction or soft tissue mass. 3. Substantial stability of the 9th rib lesion over interval since 06/09/2014 is reassuring for ketty mendez. 4. Possible atypical hemangiomas versus arteriovenous malformations in the liver, and MRI examinatio n may be of further use. 5. Otherwise, no acute process in the chest. RPTAT: [facility]U Yoni Mendez Physician Date Time Electronically viewed and signed by Yoni Mendez Physician on 01/22/2017 23:50 RS/
[2017-01-23] MEDS ORDERED: METHYLPREDNISOLONE 4 MG TAB PO SCH ×4 (07:25→21:00)
--- NOTE | 2017-01-23 10:54 | RADRPT ---
Echocardiogram Report Patient Name: SUN AMBROSIO Gender: Female Date: 1955 Study Date: 22-Jan-2017 Coldfusion: ELIAS Location: I Ref. Physician: MARCOS SIDDIQI Quality: Adequate Procedures: Transthoracic echocardiogram with complete 2D, M-Mode, and Doppler examination. Indications: Chest Pain. 2D/M Mode Doppler Measurement Value Normal Ranges Measurement Value Normal Ranges AoR Diam MM 2.9 cm AV Peak Efren 1.4 m/sec ACS MM 1.7 cm AV Peak PG 7.5 mmHg LVIDd 2D 4.0 3.5 - 5.6 cm LVOT Peak Efren 0.7 m/sec LVIDs 2D 2.5 2.1 - 4.1 cm LVOT Peak PG 2.2 mmHg LVPWd 2D 1.1 0.6 - 1.1 cm MV E Peak Efren 0.7 m/sec IVSd 2D 1.1 0.6 - 1.1 cm MV A Peak Efren 0.8 m/sec EDV 2D 69.9 cm3 MV E/A 0.8 ESV 2D 16.0 cm3 MV Decel Time 223 msec LA Dimen 2D 3.0 2.3 - 4.[address] [place] 3 MV E/A 0.8 PV Peak Efren 0.8 m/sec PV Peak PG 2.0 mmHg Findings Left Ventricle: Normal left ventricular systolic function. Normal left ventricular cavity size. Normal left ventricular wall thickness. Ejection fraction is visually estimated at 65 %. Tissue Doppler/Mitral Doppler indices are within normal limits. E/E`=8. Right Ventricle: Normal right ventricular size. Normal right ventricular systolic function. Left Atrium: The left atrium is normal in size. Right Atrium: The right atrium is normal in size. Atrial Septum: Normal atrial septum. Mitral Valve: Mild mitral annular calcification. No mitral valve regurgitation is seen. Aortic Valve: Normal appearance of the aortic valve. No significant aortic stenosis or insufficiency. Tricuspid Valve: Normal appearance and function of the tricuspid valve with trace physiologic regurgitation. Pulmonic Valve: Normal pulmonic valve appearance. No evidence of pulmonic regurgitation. Pericardium: Normal pericardium with no significant pericardial effusion. Aorta: Normal aortic root. IVC: Normal size and normal respiratory collapse consistent with normal right atrial pressure. Pulmonary Artery: Normal pulmonary artery size. Conclusions Normal left ventricular systolic function. Normal left ventricular cavity size. Normal left ventricular wall thickness. Ejection fraction is visually estimated at 65 %. Tissue Doppler/Mitral Doppler indices are within normal limits. E/E`=8. Mild mitral annular calcification. No mitral valve regurgitation is seen. Normal appearance and function of the tricuspid valve with trace physiologic regurgitation. Electronically Signed By: Avery Kirkland 23-Jan-2017 10:54:07 -0800 Patient Name: SUN AMBROSIO Study Date: 22-Jan-2017 [id number]
[2017-01-24] MEDS ORDERED: METHYLPREDNISOLONE 4 MG TAB PO SCH (21:00)
== END 2017-01-22 18:50 | disposition home or self-care (01) | DRG 552 ==
LOC: E/R 16:14 → TEL 01-22 01:42
PROVIDERS: ADMIT Internal Medicine; ATTEND Internal Medicine
DX: M51.16 Intervertebral disc disorders with radiculopathy, lumbar region (principal); E87.3 Alkalosis; N39.0 Urinary tract infection, site not specified; D64.9 Anemia, unspecified; E86.0 Dehydration; R07.89 Other chest pain; B95.1 Streptococcus, group B, as the cause of diseases classified elsewhere
CPT/HCPCS: 36415; 71010; 71260; 72100; 80053; 80061; 81001; 81003; 82550; 82553; 83036; 83690; 83735; 84443; 84484; 85025; 87086; 93005; 93306; 96361; 96374; 96375; 96376; J0696; J0744; J1650; J2270; J2405; J7030; J7040; J7509; Q9967

== ENCOUNTER 2017-04-03 18:32 | Emergency (ER) | END 2017-04-03 23:09 | disposition home or self-care (01) ==

== ENCOUNTER 2017-09-04 10:34 | Emergency (ER) | END 2017-09-04 12:29 | disposition home or self-care (01) ==

== ENCOUNTER 2018-02-28 14:23 | Emergency (ER) | payer OTHER ==
[~2018-02-28] VITALS: Wt 61.4 kg
[~2018-02-28 14:23] MED LIST changes: +DOCU-216 PO; +Methylprednisolone Dose Pack PO; +TRAM50TA PO
[2018-02-28 14:26] VITALS: BP 129/71; PULSE 99; RESP 20
--- NOTE | 2018-02-28 15:08 | ERD ---
ER Documentation Chief Complaint Chief Complaint adam akle and foot swelling, denies trauma HPI 62-year-old female with history of diabetes and arthritis, presents the emergency department, complaining of 1 week with worsening of bilateral ankle swelling, associated with bilateral hand pain and general malaise. The patient has been taking Tylenol without improvement of the symptoms. She denies fevers or chills. ROS All systems reviewed and are negative except as per history of present illness. Medications Home Meds Active Scripts Hydrocodone/Acetaminophen ([place] 5-325 Tablet) 1 Each Tablet, 1 TAB PO BID PRN for PAIN, #14 TAB Prov:TULIO GERMAN MD 02/28/18 Ciprofloxacin Hcl* (Ciprofloxacin Hcl*) 250 Mg Tablet, 250 MG PO BID, #14 TAB Prov:TULIO GERMAN MD 02/28/18 Tramadol Hcl* (Ultram*) 50 Mg Tablet, 50 MG PO Q6H PRN for PAIN, #15 TAB Prov:ELIZABETH FIELD MD 09/04/17 Ibuprofen* (Motrin*) 600 Mg Tab, 600 MG PO Q6, #20 TAB Prov:ELIZABETH FIELD MD 09/04/17 [Methylprednisolone Dose Pack] 1 EA EACH No Conflict Check, 0 EA PO .STD DOSE PACK Take Medrol Pack as instructed by pharmacy. Prov:AUSTEN FINK MD 01/22/17 Docusate Sodium (Dok) 100 Mg Capsule, 100 MG PO HS for 7 Days, #10 CAP OTC Prov:AUSTEN FINK MD 01/22/17 Ibuprofen* (Motrin*) 600 Mg Tab, 600 MG PO Q6, #30 TAB Prov:SANFORD ROJAS PA-C 07/21/16 Acetaminophen* (Tylenol*) 325 Mg Tablet, 2 TAB PO Q6 PRN for PAIN AND OR ELEVATED TEMP, #20 TAB Prov:SANFORD ROJAS PA-C 07/21/16 Furosemide* (Lasix*) 20 Mg Tablet, 20 MG PO DAILY, #40 TAB Prov:SANFORD ROJAS PA-C 07/21/16 Tramadol HCl (Tramadol HCl) 50 Mg Tablet, 50 MG PO Q4 PRN for PAIN, #20 TAB Prov:ELIZABETH FIELD MD 10/14/15 Ibuprofen* (Motrin*) 600 Mg Tab, 600 MG PO Q6, #20 TAB Prov:ELIZABETH FIELD MD 10/14/15 Hydrocodone Bit-Acetaminophen* ([place]*) 5-325 Mg Tab, 1 TAB PO DAILY PRN for PAIN, #10 TAB 0 Refills Prov:RYDER MOHR PA-C 01/15/15 Reported Medications Acetaminophen* (Tylenol*) 500 Mg Tab, 500 MG PO Q4H PRN for MILD PAIN LEVEL 1-3, TAB 06/09/14 Allergies Allergies: Coded Allergies: Penicillins (Verified Allergy, Unknown, 10/14/15) PMhx/Soc History of Surgery: Yes (BACK SURGERY, L knee sx) Anesthesia Reaction: No Hx Neurological Disorder: No Hx Respiratory Disorders: No Hx Cardiac Disorders: No Hx Psychiatric Problems: No Hx Miscellaneous Medical Probl: No Hx Alcohol Use: No Hx Substance Use: No Hx Tobacco Use: No Smoking Status: Never smoker Physical Exam Vitals Vital Signs Date Temp Pulse Resp B/P (MAP) Pulse Ox O2 O2 Flow FiO2 Time Delivery Rate 02/28/18 100.0 99 20 129/71 97 14:26 (90) Physical Exam Const: No acute distress Head: Atraumatic Eyes: Normal Conjunctiva ENT: Normal External Ears, Nose and Mouth. Neck: Full range of motion. No meningismus. Resp: Clear to auscultation bilaterally Cardio: Regular rate and rhythm, no murmurs Abd: Soft, non tender, non distended. Normal bowel sounds Skin: No petechiae or rashes Back: No midline or flank tenderness Ext: No cyanosis, or edema Neur: Awake and alert Psych: Normal Mood and Affect Result Diagram: 02/28/18 1536 02/28/18 1536 Results 24 hrs Laboratory Tests Test 02/28/18 15:36 White Blood Count 15.3 10^3/ul Red Blood Count 4.45 10^6/ul Hemoglobin 13.1 g/dl Hematocrit 39.2 % Mean Corpuscular Volume 88.1 fl Mean Corpuscular Hemoglobin 29.4 pg Mean Corpuscular Hemoglobin Concent 33.4 g/dl Red Cell Distribution Width 12.8 % Platelet Count 327 10^3/UL Mean Platelet Volume 10.1 fl Immature Granulocytes % 0.300 % Neutrophils % 82.9 % Lymphocytes % 10.7 % Monocytes % 5.7 % Eosinophils % 0.1 % Basophils % 0.3 % Nucleated Red Blood Cells % 0.0 /100WBC Immature Granulocytes # 0.040 10^3/ul Neutrophils # 12.7 10^3/ul Lymphocytes # 1.6 10^3/ul Monocytes # 0.9 10^3/ul Eosinophils # 0.0 10^3/ul Basophils # 0.1 10^3/ul Nucleated Red Blood Cells # 0.0 10^3/ul Urine Color YELLOW Urine Clarity SLIGHTLY CLOUDY Urine pH 6.0 Urine Specific Cummings 1.026 Urine Ketones TRACE mg/dL Urine Nitrite NEGATIVE mg/dL Urine Bilirubin NEGATIVE mg/dL Urine Urobilinogen 1+ mg/dL Urine Leukocyte Esterase TRACE Yanira/ul Urine Microscopic RBC 31 /HPF Urine Microscopic WBC 4 /HPF Urine Squamous Epithelial Cells FEW /HPF Urine Mucus MODERATE /HPF Urine Hemoglobin 3+ mg/dL Urine Glucose NEGATIVE mg/dL Urine Total Protein 1+ mg/dl Sodium Level 141 mmol/L Potassium Level 3.6 mmol/L Chloride Level 101 mmol/L Carbon Dioxide Level 30 mmol/L Anion Gap 10 Blood Urea Nitrogen 20 mg/dl Creatinine 0.78 mg/dl Est Glomerular Filtrat Rate mL/min > 60 mL/min Glucose Level 134 mg/dl Calcium Level 9.7 mg/dl Troponin I < 0.012 ng/ml B-Type Natriuretic Peptide 234 PG/ML Current Medications Medications Dose Sig/Dominick Start Time Status Last (Trade) Ordered Route PRN Stop Time Admin Dose Reason Admin Morphine 5 mg ONCE ONCE 02/28/18 DC 02/28/18 Sulfate PO 17:00 02/28/18 17:06 (morphine) 17:01 EKG read by me: Rate/Rhythm: Regular rate and rhythm at a rate of 92 Intervals: Normal No acute ST changes. No T wave inversion Impression: No evidence of acute ischemia or arrhythmia Patient: SUN AMBROSIO : 1955 Age: 62 Sex: F MR #: [id number] DOS: 02/28/18 1505 Ordering MD: TULIO GERMAN MD Location: [facility] Room/Bed: PROCEDURE: XR Chest PA and Lateral CLINICAL INDICATION: Normal leg edema TECHNIQUE: PA and Lateral views of the chest were obtained. COMPARISON: 04/03/2017 FINDINGS: Cardiovascular: The cardiovascular silhouette appears unremarkable, except for persistent atherosclerotic calcification within the aorta. Calcified subcarinal nodes are again noted. Lung Fierro: Discoid atelectasis appears slightly more prominent within the medial right lung base. The lung fierro are otherwise clear. Pleural Spaces: No pneumothorax is identified and no effusion is evident. Osseous Structures: There is again an expansile lesion involving the lateral left eighth rib. There is again a mild dextroscoliotic curve to the thoracic spine Soft Tissues: The soft tissues appear unremarkable. IMPRESSION: 1. There is been no significant interval change to the expansile lesion involving the lateral left eighth rib. There is again a mild dextroscoliotic curve to the thoracic spine. 2. Mild discoid atelectasis appears more prominent within the medial right lung base with slight elevation of the right hemidiaphragm. 3. Subcarinal calcified nodes are again evident. 4. Mildly atherosclerotic aorta, unchanged. Physician Ashley Date Time Electronically viewed and signed by Physician Ashley on 02/28/2018 16:49 RH/ CC: TULIO GERMAN MD Procedures/MDM Differential diagnosis include but not limited to: UTI, arthritis, pneumonia, CHF, thyroid disease, medication side effect. Physical examination and clinical presentation consistent most likely with urinary tract infection. During the ED course the patient remained stable, no new complaints. The patient received treatment with n.p.o. presenting overall improvement of the symptoms. Results and clinical impression discussed with patient who agrees with management. The patient is stable to be treated outpatient and will be discharged home, some side effects of prescribed medications (headache, rash, nausea, vomiting, diarrhea, drowsiness, habituation, bleeding, hypertension, interactions with other medications) were reviewed. The patient was instructed to follow up with the primary care provider in the next 48h. If symptoms persist, worsen or new symptoms develop, then patient should return to the ED immediately. Instructions explained and given directly by me to the patient with acknowledgment and demonstrated understanding. Disclaimer: Inadvertent spelling and grammatical errors are likely due to EHR/dictation software use and do not reflect on the overall quality of patient care. Also, please note that the electronic time recorded on this note does not necessarily reflect the actual time of the patient encounter. Departure Diagnosis: Primary Impression: Arthralgia Additional Impression: UTI (urinary tract infection) Condition: Stable Additional Instructions: Muchas jose por [facility] para mobley servicio. Esperamos que en mobley visita a la dory de emergencia mobley problema medico haya sido solucionado y que se sienta mucho mejor. Para estar seguros que mobley mejoria sigue en proceso, le pedimos el favor de hacer makenzie pete de seguimiento medico con mobley doctor primario en los proximos 2-4 bryant. Lleve con usted estos documentos y las medicinas recetadas. Si mariza sintomas empeoran, NO SE ESPERE, por favor regrese a dory de emergencia INMEDIATAMENTE. En domingo que usted no tenga un mdico de atencin primaria: Llame al mdico o clnica comunitaria de referencia que aparece abajo dede las horas de consultorio para hacer makenzie pete para que le vean. CLINICAS: [facility] [phone] [facility] [phone] [facility] [phone] [facility] [phone] [facility] [phone] [id number] [facility]. [phone] MD Feb 28, 2018 15:08
[2018-02-28] MEDS ORDERED: morphine LIQ (10 MG/5 ML) CUP PO ONE (17:00)
[2018-02-28] MEDS ORDERED: CIPR-193 PO (17:23)
[2018-02-28] MEDS ORDERED: HYDR-4011 PO (17:23)
== END 2018-02-28 17:42 | disposition home or self-care (01) ==
LOC: FTE 14:23
DX: M25.542 Pain in joints of left hand (principal); E11.9 Type 2 diabetes mellitus without complications; N39.0 Urinary tract infection, site not specified; M25.541 Pain in joints of right hand; R07.9 Chest pain, unspecified
CPT/HCPCS: 71046; 80048; 81001; 83880; 84484; 85025; 87086; 93005; Z7502; Z7610

== ENCOUNTER 2018-10-29 15:26 | Emergency (ER) | payer SELFPAY ==
[~2018-10-29] VITALS: Wt 58.3 kg
[~2018-10-29 15:26] MED LIST changes: +BEN25 PO; +CIPR-193 PO; +CLIN300C10 PO; +HYDR-4011 PO
[2018-10-29 15:27] VITALS: BP 139/63; PULSE 67; RESP 18
== END 2018-10-29 19:10 | disposition left against medical advice (07) ==
LOC: FTE 15:26
DX: Z53.21 Procedure and treatment not carried out due to patient leaving prior to being seen by health care provider (principal)